=== PATIENT | female | born 1975 | race African-American/Black ===

== ENCOUNTER → 2017-05-06 | Outpatient (CLI) | payer BC ==
[2014-07-22 00:21] VITALS: BP 124/74
[2017-05-06 15:46] LABS: BASO # 0.1 x10^3/uL (0.0-0.2); BASO % 0 % (0-3); EOS % 0 % (0-3); HEMATOCRIT 42.2 % (36.0-47.0); HEMOGLOBIN 14.2 g/dL (12.0-15.5); LYMPH # 0.8 x10^3/uL (1.0-4.8); LYMPH % 6 % (24-48); MEAN CORPUSCULAR HEMOGLOBIN 31 pg (25-35); MEAN CORPUSCULAR HGB CONC 34 g/dL (31-37); MEAN CORPUSCULAR VOLUME 93 fL (79-100); MONO % 6 % (0-9); NEUT % 88 % (31-73); PLATELET COUNT 270 x10^3/uL (140-400); RED BLOOD COUNT 4.55 x10^6/uL (3.50-5.40); RED CELL DISTRIBUTION WIDTH 12.7 % (11.5-14.5); WHITE BLOOD COUNT 14.6 x10^3/uL (4.0-11.0)
== END | disposition home or self-care (01) ==
LOC: LAB 15:24
PROVIDERS: ATTEND Internal Medicine Cardiovascular Disease
DX: J02.9 Acute pharyngitis, unspecified (principal)
CPT/HCPCS: 36415; 85027; 87070